=== PATIENT | female | born 1960 | race Caucasian/White ===

== ENCOUNTER 2017-04-02 14:25 | Outpatient (CLI) | payer OTHER | END 2017-04-02 14:26 | disposition home or self-care (01) | LOC: BICMAMMO 14:25 | PROVIDERS: ATTEND Obstetrics & Gynecology | DX: Z12.31 Encounter for screening mammogram for malignant neoplasm of breast (principal) | CPT/HCPCS: 77063; 77067 ==

== ENCOUNTER 2018-11-25 13:50 | Outpatient (CLI) | payer OTHER ==
--- NOTE | 2018-11-25 15:31 | BD ---
DEXA BONE DENSITY STUDY: Date: 11/25/18 HISTORY: 57-year-old postmenopausal female for screening. FINDINGS: Lumbar Spine: BMD (g/cm2) L1 1.001 T-Score: 0.1 L2 0.957 T-Score: -0.6 L3 0.986 T-Score: -0.9 L4 1.025 T-Score: -0.3 L1-L4 0.992 T-Score: -0.5 Femoral Neck: 0.729 T-Score: -1.1 Total Femur: 1.046 T-Score: 0.8 IMPRESSION: Osteopenia. This patient has a 10 year WHO fracture risk for a major osteoporotic fracture of 6.5% an d for a hip fracture of 0.4%. POS: [facility]
== END 2018-11-25 13:51 | disposition home or self-care (01) ==
LOC: BICMAMMO 13:50
PROVIDERS: ATTEND Obstetrics & Gynecology
DX: Z13.820 Encounter for screening for osteoporosis (principal); M85.89 Other specified disorders of bone density and structure, multiple sites
CPT/HCPCS: 77080

== ENCOUNTER 2021-09-24 15:28 | Outpatient (CLI) | payer BC | END 2021-09-24 15:29 | disposition home or self-care (01) | LOC: BICULT 15:28 | PROVIDERS: ATTEND Family Medicine | DX: I10 Essential (primary) hypertension (principal); R09.89 Other specified symptoms and signs involving the circulatory and respiratory systems | CPT/HCPCS: 93880 ==

== ENCOUNTER 2025-01-15 09:48 | Outpatient (CLI) | payer BC | END 2025-01-15 09:49 | disposition home or self-care (01) | LOC: LABBT 09:48 | PROVIDERS: ATTEND Internal Medicine Cardiovascular Disease | DX: Z01.810 Encounter for preprocedural cardiovascular examination (principal); I48.0 Paroxysmal atrial fibrillation | CPT/HCPCS: 93005; 93010 ==

== ENCOUNTER 2025-01-17 08:19 | Day surgery (SDC) | payer BC ==
[2025-01-15 09:57] VITALS: BMI 28.1
[2025-01-15 11:02] LABS: #Basophils 0.05 10x3/uL (0.0-0.2); #Eosinophils 0.03 10x3/uL (0.0-0.7); #Monocytes 0.35 10x3/uL (0.11-0.59); #Neutrophils 4.03 10x3/uL (1.40-6.50); %Basophils 0.9 % (0.0-1.0); %Eosinophils 0.6 % (0.0-10.0); %Lymphocytes 16.1 % (21.0-51.0); %Monocytes 6.6 % (0.0-10.0); %Neutrophils 75.4 % (42.0-75.0); Hematocrit 37.4 % (36.0-47.0); Hemoglobin 12.3 g/dL (12.0-16.0); Mean Corpuscular Hemoglobin 28.3 pg (27.0-31.0); Mean Corpuscular Volume 86.2 fL (78.0-98.0); Platelet Count 184 10x3/uL (130-400); Red Blood Cell (RBC) Count 4.34 mill/uL (4.20-5.40); White Blood Cell (WBC) Count 5.34 10x3/uL (4.8-10.8)
[2025-01-15 11:14] LABS: INR-International Normal Ratio 1.1; Prothrombin Time 14.1 sec (12.0-14.7)
[2025-01-15 11:15] LABS: PTT 31.0 sec (22.9-36.1)
[2025-01-15 11:27] LABS: ALT (SGPT) 49 U/L (Less than 34); AST (SGOT) 35 U/L (11-34); Albumin 4.3 g/dL (3.1-4.5); Alkaline Phosphatase 120 U/L (40-110); Anion Gap 13 mmol/L (10-20); BUN (Urea Nitrogen) 18 mg/dL (9.8-20.1); Bilirubin, Total 0.4 mg/dL (0.3-1.2); Calc. Creatinine Clearance 0 mL/min (70-130); Calcium 9.8 mg/dL (7.8-10.44); Carbon Dioxide 27 mmol/L (23-31); Chloride 106 mmol/L (98-107); Globulin 3.0 g/dL (2.4-3.5); Glucose 89 mg/dL (80-115); Potassium 3.9 mmol/L (3.5-5.1); Sodium 142 mmol/L (136-145)
[2025-01-16 08:15] LABS: Myoglobin, Serum 35.0 ng/mL (25-58)
[2025-01-17] MEDS ORDERED: Lidocaine 1% PF 5 ML VIAL ONE ×2 (08:29→10:34)
[2025-01-17] MEDS ORDERED: Rocuronium Bromide 10 MG/ML (10ML VIAL) ONE ×2 (08:30→13:07)
[2025-01-17] MEDS ORDERED: Heparin 10,000 UNITS/ 10 ML VIAL ONE ×2 (08:53→11:40)
[2025-01-17] MEDS ORDERED: PROPOFOL 200 MG/20 ML VIAL ONE (10:58)
[2025-01-17 11:15] LABS: Hemoglobin,Free - Plasma 4.0 mg/dL (0.0-4.9)
[2025-01-17] MEDS ORDERED: DOPamine 400 MG/D5W 250 ML 0 ML ONE (11:18)
[2025-01-17] MEDS ORDERED: Isoproterenol 0.2 MG/1 ML AMP ONE (11:19)
[2025-01-17] MEDS ORDERED: SUGAMMADEX SODIUM 200 MG/2 ML VIAL ONE (11:20)
[2025-01-17] MEDS ORDERED: Ondansetron PF 4 MG/2 ML Vial ONE (11:21)
[2025-01-17] MEDS ORDERED: PHENYLEPHRINE-NS 100 MCG/ML 10 ML SYRINGE ONE (11:33)
[2025-01-17] MEDS ORDERED: Nitroglycerin 50 MG/250 ML BOT 250 ML ONE (12:39)
== END 2025-01-17 17:50 | disposition home or self-care (01) ==
LOC: SDC 08:19
PROVIDERS: ATTEND Internal Medicine Cardiovascular Disease
PROC: 02583ZZ Destruction of Conduction Mechanism, Percutaneous Approach (ICD-10-PCS; principal; 2025-01-17)
PROC: 4A023FZ Measurement of Cardiac Rhythm, Percutaneous Approach (ICD-10-PCS; principal; 2025-01-17)
DX: I48.92 Unspecified atrial flutter (principal); I48.0 Paroxysmal atrial fibrillation; Z90.49 Acquired absence of other specified parts of digestive tract; Z79.01 Long term (current) use of anticoagulants
CPT/HCPCS: 36415; 80053; 83010; 83051; 83874; 85025; 85347; 85610; 85730; 86850; 86900; 86901; 93005; 93623; 93655; 93656; 93657; J1100; J1265; J1644; J2371; J2405; J2704; J2720; J3010